=== PATIENT | male | born 1950 | race African-American/Black ===

== ENCOUNTER 2017-02-03 14:54 | Emergency (ER) | payer OTHER ==
[~2017-02-03] VITALS: Ht 167.6 cm; Wt 68.0 kg
[2017-02-03] MEDS ORDERED: HYDR-519 PO (15:00)
[2017-02-03] MEDS ORDERED: MORP15TA67 PO (15:00)
[2017-02-03] MEDS ORDERED: TORADOL (15:00)
[2017-02-03] MEDS ORDERED: ONDANSETRON 4MG ODT PO ONE (16:15)
[2017-02-03] MEDS ORDERED: MAGNESIUM/ALUMINUM HYDROXIDE/SIMETHICONE 30ML UDC PO STA (16:31)
[2017-02-03] MEDS ORDERED: VISCOUS LIDOCAINE 2% 15 ML UDC PO STA (16:31)
[2017-02-03] MEDS ORDERED: ONDANSETRON HCL 4MG/2ML VIAL IV STA (16:44)
[2017-02-03] MEDS ORDERED: SODIUM CHLORIDE 0.9% 1,000 ML IV ONE (16:44)
[2017-02-03] MEDS ORDERED: MORPHINE SULFATE 4 MG/ML CPJ (NOT FOR IM USE) IV STA (16:44)
[2017-02-03] MEDS ORDERED: FAMOTIDINE 20MG/2ML VIAL IV ONE (17:00)
[2017-02-03 17:09] LABS: HEMATOCRIT. 38.3 % (42.0-52.0); HEMOGLOBIN. 12.8 g/dL (14.0-18.0); MEAN CORPUSCULAR HEMOGLOBIN 29.7 pg (28.0-32.0); MEAN CORPUSCULAR VOLUME 89.2 fL (80.0-94.0); MEAN PLATELET VOLUME 8.6 fl (7.4-10.4); PLATELET 191 x1000/uL (130-400); RED BLOOD CELL COUNT 4.29 mill/uL (4.7-6.1); RED CELL DISTRIBUTION WIDTH 14.3 % (11.6-14.6)
[2017-02-03 17:15] LABS: INR 1.1; PROTHROMBIN TIME 11.1 sec
[2017-02-03 17:32] LABS: CARBON DIOXIDE 28 mEq/L (21-32); CHLORIDE 106 mEq/L (98-107); ETHANOL BLOOD < 10 mg/dL
[2017-02-03 17:35] LABS: CLARITY URINE CLEAR (CLEAR); COLOR URINE YELLOW (YELLOW); KETONES URINE 3+ (NEGATIVE); LEUKOCYTE ESTERASE URINE NEGATIVE (NEGATIVE); NITRITE URINE NEGATIVE (NEGATIVE); OCCULT BLOOD URINE NEGATIVE (NEGATIVE); PROTEIN URINE NEGATIVE (NEGATIVE); SPECIFIC GRAVITY URINE 1.017 (1.005-1.030); UROBILINOGEN URINE 0.2 E.U./dL (0.2-1.0)
[2017-02-03 17:38] LABS: PLATELET ESTIMATE NORMAL
[2017-02-03 19:15] VITALS: BP 149/88
== END 2017-02-03 19:53 | disposition home or self-care (01) ==
LOC: ER 15:01
DX: N20.0 Calculus of kidney (principal); I10 Essential (primary) hypertension; Z88.8 Allergy status to other drugs, medicaments and biological substances
CPT/HCPCS: 36415; 74176; 80053; 81003; 83690; 85025; 85610; 96361; 96374; 96375; 99285; G0482; J2270; J2405; J3490; J7030; Q0162; Z7610